=== PATIENT | male | born 1955 | race Caucasian/White ===

== ENCOUNTER 2018-03-05 18:55 | Emergency (ER) | payer OTHER ==
[~2018-03-05] VITALS: Ht 190.5 cm; Wt 104.3 kg
[2018-03-05 19:49] LABS: Hematocrit 38.6 % (37.0-53.0); Hemoglobin 13.1 g/dL (13.5-17.5); Mean Corpuscular HGB 29.4 pg (26.0-34.0); Mean Corpuscular HGB Conc 33.9 g/dL (31.5-36.5); Mean Corpuscular Volume 87 fL (80-100); Mean Platelet Volume 8.8 fL (9.1-12.4); Platelet Count 184 K/mm3 (150-400); RDW Coefficient Variation 12.7 % (11.7-14.2); Red Blood Cell Count 4.46 M/mm3 (4.30-5.90); White Blood Cell Count 5.23 K/mm3 (4.00-11.30)
[2018-03-05 20:06] LABS: Anion Gap 7 mmol/L (6-16); Blood Urea Nitrogen 21 mg/dL (8-24); Bun/Creatinine Ratio 23.7 (12.0-20.0); CO2, Blood 26 mmol/L (21-32); Chloride, Blood 108 mmol/L (98-108); Creatinine, Blood 0.89 mg/dL (0.60-1.20); Glomerular Filtration Rate >60 (60-); Glucose, Blood 131 mg/dL (70-99); Potassium, Blood 3.8 mmol/L (3.5-5.5); Sodium, Blood 141 mmol/L (136-145)
[2018-03-05] MEDS ORDERED: Norco 5-325 Ta1 EACH PO (21:03)
== END 2018-03-05 21:12 | disposition home or self-care (01) ==
LOC: ER 18:55
PROVIDERS: Emergency Medicine
DX: S09.90XA Unspecified injury of head, initial encounter (principal); S16.1XXA Strain of muscle, fascia and tendon at neck level, initial encounter; S20.212A Contusion of left front wall of thorax, initial encounter; I71.2 Thoracic aortic aneurysm, without rupture; V49.9XXA Car occupant (driver) (passenger) injured in unspecified traffic accident, initial encounter; I10 Essential (primary) hypertension
CPT/HCPCS: 70450; 71260; 72125; 73000; 80048; 85027; 96374; 96376; 99285-25; J3010; Q9967

== ENCOUNTER 2018-07-22 14:14 | Emergency (ER) | payer OTHER ==
[~2018-07-22] VITALS: Ht 190.5 cm; Wt 98.0 kg
[~2018-07-22 14:14] MED LIST: Norco 5-325 Ta1 EACH PO
[2018-07-22] MEDS ORDERED: LISI20 PO (14:21)
[2018-07-22 15:32] LABS: BASOPHILS ABSOLUTE AUTO 0.05 K/mm3 (0.00-0.23); BASOPHILS PERCENT AUTO 1 % (0-2); EOSINOPHILS ABSOLUTE AUTO 0.17 K/mm3 (0.00-0.68); EOSINOPHILS PERCENT AUTO 3 % (0-6); Hematocrit 39.2 % (37.0-53.0); Hemoglobin 13.2 g/dL (13.5-17.5); IMMATURE GRAN ABSOLUTE AUTO 0.02 K/mm3 (0.00-0.10); IMMATURE GRAN PERCENT AUTO 0 % (0-1); LYMPHOCYTES PERCENT AUTO 30 % (21-46); MONOCYTES ABSOLUTE AUTO 0.36 K/mm3 (0.16-1.47); MONOCYTES PERCENT AUTO 7 % (4-13); Mean Corpuscular HGB 29.7 pg (26.0-34.0); Mean Corpuscular HGB Conc 33.7 g/dL (31.5-36.5); Mean Corpuscular Volume 88 fL (80-100); Mean Platelet Volume 8.8 fL (9.1-12.4); NEUTROPHILS PERCENT AUTO 59 % (41-73); Platelet Count 222 K/mm3 (150-400); RDW Coefficient Variation 12.4 % (11.7-14.2); RDW Standard Deviation 40.5 fL (35.1-46.3); Red Blood Cell Count 4.45 M/mm3 (4.30-5.90)
[2018-07-22 15:48] LABS: Troponin I <0.015 ng/mL (0.000-0.040)
[2018-07-22 15:57] LABS: Alanine Aminotransfer (ALT/SGP 27 U/L (12-78); Albumin, Blood 4.1 g/dL (3.4-5.0); Albumin/Globulin Ratio 1.4 (0.8-1.8); Alk Phos 58 U/L (50-136); Anion Gap 8 mmol/L (6-16); Aspartate Aminotrans (AST/SGOT 18 U/L (12-37); Bilirubin, Total 0.5 mg/dL (0.1-1.0); Blood Urea Nitrogen 12 mg/dL (8-24); CO2, Blood 26 mmol/L (21-32); Calcium, Blood 8.7 mg/dL (8.5-10.1); Chloride, Blood 107 mmol/L (98-108); Creatinine, Blood 0.71 mg/dL (0.60-1.20); Glomerular Filtration Rate >60 (60-); Glucose, Blood 90 mg/dL (70-99); Potassium, Blood 3.5 mmol/L (3.5-5.5); Sodium, Blood 141 mmol/L (136-145); Total Protein, Blood 7.1 g/dL (6.4-8.2)
[2018-07-25 14:10] LABS: Cholesterol 191 mg/dL (50-200); HDL Cholesterol 48 mg/dL (>39); LDL/HDL RATIO 2.6; Low Density Lipoprotein Chol 126 mg/dL (0-110); Triglycerides 84 mg/dL (30-160); Very Low Density Lipoprot Chol 16 mg/dL (6-32)
== END 2018-07-22 17:00 | disposition home or self-care (01) ==
LOC: ER 14:14
PROVIDERS: Physician Assistant
DX: M79.622 Pain in left upper arm (principal); I10 Essential (primary) hypertension; Z87.891 Personal history of nicotine dependence; Z88.5 Allergy status to narcotic agent; Z79.899 Other long term (current) drug therapy
CPT/HCPCS: 36415; 71046; 80053; 80061; 83880; 84484; 85025; 93005; 93010; 99284-25

== ENCOUNTER 2018-09-07 13:40 | Observation (INO) | payer OTHER ==
[~2018-09-07] VITALS: Ht 188 cm; Wt 96.1 kg
[~2018-09-07 13:40] MED LIST changes: +LISI20 PO
[2018-09-07] MEDS ORDERED: METO25ER PO (14:13)
[2018-09-07] MEDS ORDERED: ASPI325 PO (14:13)
[2018-09-07 14:56] LABS: BASOPHILS ABSOLUTE AUTO 0.05 K/mm3 (0.00-0.23); BASOPHILS PERCENT AUTO 0 % (0-2); EOSINOPHILS ABSOLUTE AUTO 0.06 K/mm3 (0.00-0.68); EOSINOPHILS PERCENT AUTO 1 % (0-6); Hematocrit 48.7 % (37.0-53.0); Hemoglobin 16.2 g/dL (13.5-17.5); IMMATURE GRAN ABSOLUTE AUTO 0.03 K/mm3 (0.00-0.10); IMMATURE GRAN PERCENT AUTO 0 % (0-1); LYMPHOCYTES ABSOLUTE AUTO 0.99 K/mm3 (0.84-5.20); LYMPHOCYTES PERCENT AUTO 9 % (21-46); MONOCYTES PERCENT AUTO 4 % (4-13); Mean Corpuscular HGB 29.5 pg (26.0-34.0); Mean Corpuscular HGB Conc 33.3 g/dL (31.5-36.5); Mean Corpuscular Volume 89 fL (80-100); Mean Platelet Volume 9.3 fL (9.1-12.4); NEUTROPHILS PERCENT AUTO 86 % (41-73); Platelet Count 240 K/mm3 (150-400); RDW Coefficient Variation 12.3 % (11.7-14.2); RDW Standard Deviation 40.8 fL (35.1-46.3); Red Blood Cell Count 5.49 M/mm3 (4.30-5.90); White Blood Cell Count 11.13 K/mm3 (4.00-11.30)
[2018-09-07 15:14] LABS: Alanine Aminotransfer (ALT/SGP 27 U/L (12-78); Albumin, Blood 4.6 g/dL (3.4-5.0); Albumin/Globulin Ratio 1.2 (0.8-1.8); Alk Phos 86 U/L (50-136); Anion Gap 7 mmol/L (6-16); Aspartate Aminotrans (AST/SGOT 20 U/L (12-37); Bilirubin, Total 0.5 mg/dL (0.1-1.0); Blood Urea Nitrogen 25 mg/dL (8-24); Bun/Creatinine Ratio 26.1 (12.0-20.0); CO2, Blood 28 mmol/L (21-32); Calcium, Blood 9.6 mg/dL (8.5-10.1); Chloride, Blood 103 mmol/L (98-108); Creatinine, Blood 0.96 mg/dL (0.60-1.20); Globulin, Blood 3.7 g/dL (2.2-4.0); Glomerular Filtration Rate >60 (60-); Glucose, Blood 129 mg/dL (70-99); Potassium, Blood 4.6 mmol/L (3.5-5.5); Sodium, Blood 138 mmol/L (136-145); Total Protein, Blood 8.3 g/dL (6.4-8.2)
[2018-09-07 15:19] LABS: International Normalized Ratio 0.93; Prothrombin Time Results 9.7 Sec (9.7-11.5)
[2018-09-07 15:24] LABS: Ethanol (Alcohol), Blood, Med <3 mg/dL
[2018-09-07 16:22] LABS: Adenovirus F 40/41 Not Detected (NOT DETECT); Astrovirus Not Detected (NOT DETECT); Campylobacter Sp Not Detected (NOT DETECT); Cryptosporidium Not Detected (NOT DETECT); Cyclospora Cayetanensis Not Detected (NOT DETECT); E. Coli O157 Not Detected (NOT DETECT); Entamoeba Histolytica Not Detected (NOT DETECT); Enteroaggregative E. coli-EAEC Not Detected (NOT DETECT); Enteropathogenic E. coli-EPEC Not Detected (NOT DETECT); Enterotoxigenic E. coli-ETEC Not Detected (NOT DETECT); Giardia Lamblia Not Detected (NOT DETECT); Norovirus GI/GII Not Detected (NOT DETECT); Plesiomonas Shigelloides Not Detected (NOT DETECT); Rotavirus A Not Detected (NOT DETECT); Salmonella Sp Not Detected (NOT DETECT); Sapovirus Not Detected (NOT DETECT); Shiga Toxin-prod E. coli-STEC Not Detected (NOT DETECT); Shigella/Enteroin E. coli-EIEC Not Detected (NOT DETECT); Vibrio Cholerae Not Detected (NOT DETECT); Vibrio Sp Not Detected (NOT DETECT); Yersinia Enterocolitica Not Detected (NOT DETECT)
[2018-09-07 16:48] LABS: U Amphetamine Screen Not Detected; U Barbituate Screen Not Detected; U Benzodiazapine Screen Not Detected; U Buprenorphine Screen Not Detected; U Cannabinoids Screen DETECTED; U Cocaine Screen Not Detected; U Methadone Screen Not Detected; U Methamphetamine Screen Not Detected; U Opiates Screen Not Detected; U Oxycodone Screen Not Detected; U Phencyclidine Screen Not Detected; U Propoxyphene Screen Not Detected
[2018-09-07 22:00] LABS: Hematocrit 41.6 % (37.0-53.0); Hemoglobin 14.2 g/dL (13.5-17.5)
--- NOTE | 2018-09-07 22:56 | NUR ---
*LATE ENTRY 1945 HRS* PT HANDOFF REPORT RECEIVED FROM ED NURSE JAY JAY. PT ADMITTED FOR GI BLEED. HAS S/SX ABD. PAIN & NAUSEA FOR PAST 2 WEEKS, CAME TO ED WHEN BEGAN TO VOMIT BLOOD AND EXPERIENCING BLOODY STOOLS. A&O X4, INDEPENDENT. NO O2 OR TELE, ROOM AIR. HX OF HTN. 18 IV IN LEFT FOREARM, HAD RECEIVED LR AND FENTANYL IN THE ED. PT TRANSFERED TO MEDICAL FLOOR APPROXIMATELY 2000 HRS WNL. PT STATES ABD PAIN IS EPISODIC. HE IS A FULL CODE. HE HAS BEEN ORIENTED TO THE UNIT. CALL LIGHT WITHIN REACH.
--- NOTE | 2018-09-07 23:02 | NUR ---
PT STATUS STOOL SAMPLE SENT TO LAB ORDERED. OF NOTE: STOOL APPEARS COMPLETELY CHINTAN, BRIGHT RED BLOOD. CONSULT CALLED TO DR. MACIAS ORDERED. PT STATES ABD. PAIN IS INTERMITTENT, NOT CONSTANT AND COMES WHEN HAVING BOWEL MOVEMENTS. NO COMPLAINTS OF NAUSEA SINCE ARRIVING ON MEDICAL FLOOR. I DID SPEAK TO THE NIGHT HOSPITALIST TO REQUEST ICE CHIPS (APPROX 2200 HRS), SHE APPROVED A VERY TINY AMOUNT ONLY. I DID EXPLAIN TO THE PT THAT THIS LIMITATION IS NECESSARY HE MAY POSSIBLY REQUIRE A PROCEDURE TOMORROW.
[2018-09-08 01:20] LABS: Source, Urine Clean Catch
[2018-09-08 01:22] LABS: Bilirubin, Urine Neg (Neg); Blood, Urine 1+ (Neg); Glucose Qualitative, Urine Neg (Neg); Ketones, Urine Neg (Neg); Leukocyte Esterase, Urine Neg (Neg); Nitrite, Urine Neg (Neg); Protein, Urine Neg (Neg); Urobilinogen, Urine NORM (Normal)
[2018-09-08 01:28] LABS: Appearance, Urine Clear (Clear); Color, Urine Yellow (P-Yellow); White Blood Cells, Urine 0-2 /hpf (0-5)
[2018-09-08 01:29] LABS: Bacteria Mod /hpf; Hyaline Casts 0-2 /lpf (0-2); Mucus Light ({null, 0-Heavy}); Red Blood Cells, Urine 0-2 /hpf (0-2); Squamous Epithelial Cells Not Seen /hpf (Few)
[2018-09-08 04:46] LABS: BASOPHILS ABSOLUTE AUTO 0.04 K/mm3 (0.00-0.23); BASOPHILS PERCENT AUTO 0 % (0-2); EOSINOPHILS ABSOLUTE AUTO 0.12 K/mm3 (0.00-0.68); EOSINOPHILS PERCENT AUTO 1 % (0-6); Hematocrit 40.7 % (37.0-53.0); Hemoglobin 13.9 g/dL (13.5-17.5); IMMATURE GRAN ABSOLUTE AUTO 0.02 K/mm3 (0.00-0.10); IMMATURE GRAN PERCENT AUTO 0 % (0-1); LYMPHOCYTES ABSOLUTE AUTO 1.39 K/mm3 (0.84-5.20); LYMPHOCYTES PERCENT AUTO 14 % (21-46); MONOCYTES ABSOLUTE AUTO 0.58 K/mm3 (0.16-1.47); MONOCYTES PERCENT AUTO 6 % (4-13); Mean Corpuscular HGB 29.4 pg (26.0-34.0); Mean Corpuscular HGB Conc 34.2 g/dL (31.5-36.5); Mean Corpuscular Volume 86 fL (80-100); Mean Platelet Volume 8.8 fL (9.1-12.4); NEUTROPHILS ABSOLUTE AUTO 7.63 K/mm3 (1.96-9.15); NEUTROPHILS PERCENT AUTO 78 % (41-73); Platelet Count 180 K/mm3 (150-400); RDW Coefficient Variation 12.5 % (11.7-14.2); RDW Standard Deviation 39.3 fL (35.1-46.3); Red Blood Cell Count 4.72 M/mm3 (4.30-5.90); White Blood Cell Count 9.78 K/mm3 (4.00-11.30)
[2018-09-08 05:06] LABS: Anion Gap 7 mmol/L (6-16); Blood Urea Nitrogen 16 mg/dL (8-24); Bun/Creatinine Ratio 17.7 (12.0-20.0); CO2, Blood 27 mmol/L (21-32); Calcium, Blood 8.8 mg/dL (8.5-10.1); Chloride, Blood 106 mmol/L (98-108); Creatinine, Blood 0.91 mg/dL (0.60-1.20); Glomerular Filtration Rate >60 (60-); Glucose, Blood 128 mg/dL (70-99); Sodium, Blood 140 mmol/L (136-145)
--- NOTE | 2018-09-08 05:58 | NUR ---
SHIFT SUMMARY PT SLEPT INTERMITTENTLY THROUGHOUT THE NIGHT. HE WAS ANXIOUS ABOUT HIS CONDITION AND WONDERING WHEN HE WOULD FIND OUT SOME ANSWERS AND SOLUTIONS. I EXPLAINED TO HIM THAT HE WOULD REMAIN NPO THIS MORNING MORE DIAGNOSTIC TESTS AND PROCEDURES COULD BE A VERY REAL POSSIBILITY. SENT URINE AND STOOL (SEE PREVIOUS NOTE) SAMPLES TO LAB, AWAITING RESULTS. CALLED IN CONSULT TO DR. MACIAS'S ANSWERING SERVICE.
[2018-09-08 06:48] LABS: Stool Occult Blood Guaiac 1 Pos (Neg)
--- NOTE | 2018-09-08 08:17 | NUR ---
ASSUMED CARE OF PT- PT ADMITTED FOR GI BLEED. CALLED DR AFTER BEDSIDE REPORT WAS COMPLETED WITH [facility] D/T PT HGB DROP FROM 16.3 TO 13.9. INQUIRED ABOUT PROTONIX DRIP. PT HAS IV PROTONIX ORDERED DAILY. NO NEW ORDERS AT THIS TIME. PER REPORT FROM [facility] GI CONSULT CALLED TO DR LORENZO. PT HAVING BLOODY STOOLS LAST NIGHT CHINTAN RED BLOOD. PER REPORT PT VOMITING "STRAIGHT BLOOD" PT STATED HE HAS NOT VOMITED SINCE LAST NIGHT. PT BP ELEVATED, HAS CHRONIC HTN. DENIES NAUSEA AT THIS TIME.
--- NOTE | 2018-09-08 14:35 | NUR ---
History, Chart, Medications and Allergies reviewed before start of procedure. Patient confirms NPO status and agrees with scheduled surgery. Patient's partial dentures left in his room.
--- NOTE | 2018-09-08 14:42 | NUR ---
09/08/18 1442 Juli Tam History, Chart, Medications and Allergies reviewed before start of procedure. Patient confirms NPO status and agrees with scheduled surgery. PATIENT DETERMINED TO BE ASA APPROPRIATE FOR PROPOFOL SEDATION PRIOR TO START OF PROCEDURE BY DR. LORENZO. 3-LEAD EKG REVIEWED WITH PHYSICIAN PRIOR TO START OF PROCEDURE. MONITOR INTACT WITH CONTINUOUS PULSE OXIMETRY AND INTERMITTENT BP.
--- NOTE | 2018-09-08 20:02 | NUR ---
SHIFT SUMMARY- PT HAD AN UPPER ENDOSCOPY TODAY IS NOW ON A FULL LIQUID DIET, THIS WILL CHANGE TO CLEAR LIQUID DIET AT 0600 AND THEN NPO AFTER THE GOLYTLY IS COMPLETED, PT TO HAVE A COLONOSCOPY TOMORROW PER DR LORENZO. PT ALERT AND ORIENTED AND INDEPENDENT IN THE ROOM. ONE C/O NAUSEA AFTER THE PROCEDURE, MEDICATED WITH IV ZOFRAN AND FOOD. PT SEEMS TO BE FEELING BETTER AT THE TIME OF BEDSIDE REPORT. NO CURRENT C/O PAIN. BEDSIDE REPORT COMPLETED WITH [facility].
--- NOTE | 2018-09-09 05:31 | NUR ---
SHIFT SUMMARY PT DIAGNOSED WITH TAMIKA'S ESOPHAGUS AND GERD YESTERDAY FOLLOWING AN ENDOSCOPY PROCEDURE. PT ON WATER AND ICE CHIPS ONLY OF 6AM TODAY (ORAL MEDS OK), BEGIN GO LYTELY AT 9AM, THEN NPO AT 2PM. WILL HAVE A COLONOSCOPY PROCEDURE. PT COMPLAINED OF HEADACHE TOWARDS END OF SHIFT, PAIN MEDICATION GIVEN, NO RELIEF REPORTED. ICE BAG APPLIED.
--- NOTE | 2018-09-09 11:44 | NUR ---
SPOKE WITH DAY SURGERY, PATIENT HAS FINISHED CONTRAST AND STOOL IS YELLOW/CLEAR, NO PARTICLES. PATIENT NOW NPO.
--- NOTE | 2018-09-09 16:39 | NUR ---
PATIENT TO DAY SURGERY FOR COLONOSCOPY.
--- NOTE | 2018-09-09 16:44 | NUR ---
INTO SDS VIA Group [employer]. Patient states colon prep results clear. History, Chart, Medications and Allergies reviewed before start of procedure.Patient confirms NPO status and agrees with scheduled PROCEDURE.LUNGS WITH SCATTERED WHEEZES THROUGH OUT. SATS>90% ON RA.
--- NOTE | 2018-09-09 17:16 | NUR ---
09/09/18 1716 Abe Carmichaelienne PATIENT DETERMINED TO BE ASA APPROPRIATE FOR PROPOFOL SEDATION PRIOR TO START OF PROCEDURE BY DR. LORENZO. 3-LEAD EKG REVIEWED WITH PHYSICIAN PRIOR TO START OF PROCEDURE. Patient states colon prep results clear. PATIENT CONFIRMS NPO STATUS AND AGREES WITH SCHEDULED PROCEDURE. History, Chart, Medications and Allergies reviewed before start of procedure. MONITOR INTACT WITH CONTINUOUS PULSE OXIMETRY AND INTERMITTENT BP. O2 VIA N/C INTACT THROUGHOUT SEDATION/PROCEDURE, 3L NC. WE WILL START WITH 2 MG IV VERSED DUE TO DIFFICULTY WITH SEDATION YESTERDAY.
--- NOTE | 2018-09-09 18:34 | NUR ---
PATIENT ARRIVED BACK TO ROOM FROM HIS COLONOSCOPY. VSS. PATIENT AWAKE AND TALKING ON THE PHONE. DENIES ANY PAIN. ORDERS PLACED FOR CARDIAC DIET.
--- NOTE | 2018-09-10 04:43 | NUR ---
[employer] INSTALLER SUMMARY NO ACUTE CHANGES THIS SHIFT. PT AAOX4 AND INDEPENDENT IN ROOM. PT REPORTS NO MORE BLOOD IN HIS STOOLS AFTER COLONOSCOPY EARLIER IN THE DAY. STARTED ON CARDIAC DIET WHICH PT TOLERATED WELL. PT DENIES PAIN, SOB, N/V. VSS, WILL CONTINUE TO MONITOR.
[2018-09-10] MEDS ORDERED: Omeprazole20 M1 PO (09:47)
--- NOTE | 2018-09-10 10:24 | NUR ---
PATIENT D/C'D TO HOME WITH FAMILY. D/C INSTRUCTIONS AND EDUCATION DISCUSSED WITH PATIENT AND COPY PROVIDED. RX MEDICATIONS FAXED TO [facility]. PATIENT DENIES ANY FURTHER QUESTIONS OR CONCERNS.
== END 2018-09-10 10:30 | disposition home or self-care (01) ==
LOC: ER 13:40 → MEDS 13:41 → ER 19:46 → MEDS 19:51
PROVIDERS: Emergency Medicine; ADMIT Hospitalist
DX: D12.3 Benign neoplasm of transverse colon (principal); K52.9 Noninfective gastroenteritis and colitis, unspecified; K57.30 Diverticulosis of large intestine without perforation or abscess without bleeding; K64.8 Other hemorrhoids; K22.2 Esophageal obstruction; K20.8 Other esophagitis; K44.9 Diaphragmatic hernia without obstruction or gangrene; E86.0 Dehydration; I10 Essential (primary) hypertension; R51 Headache; K31.89 Other diseases of stomach and duodenum; Z88.5 Allergy status to narcotic agent; Z79.899 Other long term (current) drug therapy
CPT/HCPCS: 36415; 80048; 80053; 81001; 82272; 84443; 85014; 85018; 85025; 85610; 87086; 87507; 88305; 88342; 96361; 96374; 96375; 96376; 99284-25; C9113; G0378; G0480; J0780; J2250; J2405; J3010; J7120

== ENCOUNTER 2018-09-10 14:14 | Emergency (ER) | payer OTHER ==
[~2018-09-10] VITALS: Ht 188 cm; Wt 97.1 kg
[~2018-09-10 14:14] MED LIST changes: +ASPI325 PO; +METO25ER PO; +Omeprazole20 M1 PO
[2018-09-10 15:45] LABS: BASOPHILS ABSOLUTE AUTO 0.05 K/mm3 (0.00-0.23); BASOPHILS PERCENT AUTO 1 % (0-2); EOSINOPHILS ABSOLUTE AUTO 0.12 K/mm3 (0.00-0.68); EOSINOPHILS PERCENT AUTO 2 % (0-6); Hematocrit 38.4 % (37.0-53.0); Hemoglobin 13.2 g/dL (13.5-17.5); IMMATURE GRAN ABSOLUTE AUTO 0.03 K/mm3 (0.00-0.10); IMMATURE GRAN PERCENT AUTO 0 % (0-1); LYMPHOCYTES ABSOLUTE AUTO 0.97 K/mm3 (0.84-5.20); LYMPHOCYTES PERCENT AUTO 13 % (21-46); MONOCYTES ABSOLUTE AUTO 0.47 K/mm3 (0.16-1.47); MONOCYTES PERCENT AUTO 6 % (4-13); Mean Corpuscular HGB 29.7 pg (26.0-34.0); Mean Corpuscular HGB Conc 34.4 g/dL (31.5-36.5); Mean Corpuscular Volume 87 fL (80-100); Mean Platelet Volume 8.9 fL (9.1-12.4); NEUTROPHILS ABSOLUTE AUTO 5.95 K/mm3 (1.96-9.15); NEUTROPHILS PERCENT AUTO 78 % (41-73); Platelet Count 179 K/mm3 (150-400); RDW Coefficient Variation 12.2 % (11.7-14.2); RDW Standard Deviation 38.6 fL (35.1-46.3); Red Blood Cell Count 4.44 M/mm3 (4.30-5.90); White Blood Cell Count 7.59 K/mm3 (4.00-11.30)
[2018-09-10 15:52] LABS: Alanine Aminotransfer (ALT/SGP 21 U/L (12-78); Albumin, Blood 3.8 g/dL (3.4-5.0); Albumin/Globulin Ratio 1.2 (0.8-1.8); Alk Phos 75 U/L (50-136); Anion Gap 8 mmol/L (6-16); Aspartate Aminotrans (AST/SGOT 19 U/L (12-37); Bilirubin, Total 0.6 mg/dL (0.1-1.0); Blood Urea Nitrogen 16 mg/dL (8-24); Bun/Creatinine Ratio 18.1 (12.0-20.0); CO2, Blood 26 mmol/L (21-32); Calcium, Blood 8.5 mg/dL (8.5-10.1); Chloride, Blood 102 mmol/L (98-108); Creatinine, Blood 0.89 mg/dL (0.60-1.20); Globulin, Blood 3.2 g/dL (2.2-4.0); Glomerular Filtration Rate >60 (60-); Glucose, Blood 133 mg/dL (70-99); Potassium, Blood 3.4 mmol/L (3.5-5.5); Sodium, Blood 136 mmol/L (136-145); Troponin I <0.015 ng/mL (0.000-0.040)
== END 2018-09-10 16:45 | disposition home or self-care (01) ==
LOC: ER 14:14
PROVIDERS: Emergency Medicine
DX: R53.1 Weakness (principal); Z88.5 Allergy status to narcotic agent; Z79.899 Other long term (current) drug therapy; Z79.82 Long term (current) use of aspirin; I10 Essential (primary) hypertension
CPT/HCPCS: 71046; 80053; 83690; 84484; 85025; 93005; 93010; 99285-25

== ENCOUNTER → 2019-01-27 | Outpatient (CLI) | payer OTHER ==
[2019-01-27 17:05] LABS: BASOPHILS ABSOLUTE AUTO 0.05 K/mm3 (0.00-0.23); BASOPHILS PERCENT AUTO 1 % (0-2); EOSINOPHILS ABSOLUTE AUTO 0.23 K/mm3 (0.00-0.68); EOSINOPHILS PERCENT AUTO 3 % (0-6); Hematocrit 38.2 % (37.0-53.0); Hemoglobin 13.4 g/dL (13.5-17.5); IMMATURE GRAN ABSOLUTE AUTO 0.02 K/mm3 (0.00-0.10); IMMATURE GRAN PERCENT AUTO 0 % (0-1); LYMPHOCYTES ABSOLUTE AUTO 1.78 K/mm3 (0.84-5.20); LYMPHOCYTES PERCENT AUTO 25 % (21-46); MONOCYTES ABSOLUTE AUTO 0.52 K/mm3 (0.16-1.47); MONOCYTES PERCENT AUTO 7 % (4-13); Mean Corpuscular HGB Conc 35.1 g/dL (31.5-36.5); Mean Corpuscular Volume 86 fL (80-100); Mean Platelet Volume 8.9 fL (9.1-12.4); NEUTROPHILS ABSOLUTE AUTO 4.46 K/mm3 (1.96-9.15); NEUTROPHILS PERCENT AUTO 63 % (41-73); Platelet Count 226 K/mm3 (150-400); RDW Coefficient Variation 12.4 % (11.7-14.2); RDW Standard Deviation 38.3 fL (35.1-46.3); Red Blood Cell Count 4.47 M/mm3 (4.30-5.90); White Blood Cell Count 7.06 K/mm3 (4.00-11.30)
[2019-01-27 17:19] LABS: Alanine Aminotransfer (ALT/SGP 37 U/L (12-78); Albumin, Blood 4.2 g/dL (3.4-5.0); Albumin/Globulin Ratio 1.4 (0.8-1.8); Alk Phos 75 U/L (40-126); Anion Gap 10 mmol/L (6-16); Aspartate Aminotrans (AST/SGOT 35 U/L (12-37); Bilirubin, Total 0.3 mg/dL (0.1-1.0); Blood Urea Nitrogen 25 mg/dL (8-24); Bun/Creatinine Ratio 23.1 (12.0-20.0); CO2, Blood 26 mmol/L (21-32); Calcium, Blood 9.1 mg/dL (8.5-10.1); Chloride, Blood 102 mmol/L (98-108); Creatinine, Blood 1.08 mg/dL (0.60-1.20); Globulin, Blood 3.1 g/dL (2.2-4.0); Glomerular Filtration Rate >60 (60-); Glucose, Blood 97 mg/dL (70-99); Potassium, Blood 4.2 mmol/L (3.5-5.5); Sodium, Blood 138 mmol/L (136-145); Total Protein, Blood 7.3 g/dL (6.4-8.2)
[2019-01-27 19:21] LABS: PSA, %Free 35.4 %; PSA, Free 0.199 ng/mL; Prostate Specific Antigen 0.562 ng/mL (0.000-4.000)
== END ==
LOC: LAB SHORT 16:59 → LAB EV 16:59
PROVIDERS: Emergency Medicine
DX: M62.81 Muscle weakness (generalized) (principal)
CPT/HCPCS: 80053; 84153; 84154; 85025

== ENCOUNTER → 2019-03-05 | Outpatient (CLI) | payer OTHER | END | disposition home or self-care (01) | LOC: LAB SHORT 12:15 → LAB EV 12:15 | DX: M79.671 Pain in right foot (principal) | CPT/HCPCS: 84550 ==

== ENCOUNTER → 2019-12-25 | Outpatient (CLI) | payer OTHER ==
[~2019-12-25] MED LIST changes: +CYCL10 PO; +GABAPENTIN600 MG PO; +HYDR25SUP PR; +ONDA4ODT MM; +Oxybutynin Chlo10 MG PO
[2019-12-25 12:47] LABS: BASOPHILS ABSOLUTE AUTO 0.04 K/mm3 (0.00-0.23); BASOPHILS PERCENT AUTO 1 % (0-2); EOSINOPHILS ABSOLUTE AUTO 0.15 K/mm3 (0.00-0.68); EOSINOPHILS PERCENT AUTO 2 % (0-6); Hematocrit 35.9 % (37.0-53.0); Hemoglobin 12.4 g/dL (13.5-17.5); IMMATURE GRAN ABSOLUTE AUTO 0.01 K/mm3 (0.00-0.10); IMMATURE GRAN PERCENT AUTO 0 % (0-1); LYMPHOCYTES ABSOLUTE AUTO 1.82 K/mm3 (0.84-5.20); LYMPHOCYTES PERCENT AUTO 25 % (21-46); MONOCYTES ABSOLUTE AUTO 0.62 K/mm3 (0.16-1.47); MONOCYTES PERCENT AUTO 9 % (4-13); Mean Corpuscular HGB 29.8 pg (26.0-34.0); Mean Corpuscular HGB Conc 34.5 g/dL (31.5-36.5); Mean Corpuscular Volume 86 fL (80-100); Mean Platelet Volume 8.9 fL (9.1-12.4); NEUTROPHILS ABSOLUTE AUTO 4.64 K/mm3 (1.96-9.15); NEUTROPHILS PERCENT AUTO 64 % (41-73); Platelet Count 198 K/mm3 (150-400); RDW Coefficient Variation 12.8 % (11.7-14.2); RDW Standard Deviation 40.2 fL (35.1-46.3); Red Blood Cell Count 4.16 M/mm3 (4.30-5.90); White Blood Cell Count 7.28 K/mm3 (4.00-11.30)
[2019-12-25 13:02] LABS: Alanine Aminotransfer (ALT/SGP 25 U/L (12-78); Albumin, Blood 4.1 g/dL (3.4-5.0); Albumin/Globulin Ratio 1.3 (0.8-1.8); Alk Phos 79 U/L (40-126); Anion Gap 8 mmol/L (6-16); Aspartate Aminotrans (AST/SGOT 26 U/L (12-37); Bilirubin, Total 0.5 mg/dL (0.1-1.0); Blood Urea Nitrogen 32 mg/dL (8-24); Bun/Creatinine Ratio 12.1 (12.0-20.0); CO2, Blood 24 mmol/L (21-32); Calcium, Blood 8.8 mg/dL (8.5-10.1); Chloride, Blood 101 mmol/L (98-108); Creatinine, Blood 2.65 mg/dL (0.60-1.20); Globulin, Blood 3.2 g/dL (2.2-4.0); Glomerular Filtration Rate 25 (60-); Glucose, Blood 101 mg/dL (70-99); Potassium, Blood 5.7 mmol/L (3.5-5.5); Sodium, Blood 133 mmol/L (136-145); Total Protein, Blood 7.3 g/dL (6.4-8.2)
[2019-12-25 13:03] LABS: Troponin I <0.017 ng/mL (0.000-0.040)
== END ==
LOC: LAB SHORT 12:44 → LAB EV 12:44
PROVIDERS: Family Medicine
DX: R42 Dizziness and giddiness (principal)
CPT/HCPCS: 80053; 84484; 85025

== ENCOUNTER → 2020-02-10 | Outpatient (CLI) | payer OTHER ==
[2020-02-10 16:36] LABS: Source, Urine Clean Catch
[2020-02-10 18:10] LABS: Bilirubin, Urine Neg (Neg); Blood, Urine Neg (Neg); Glucose Qualitative, Urine Neg (Neg); Ketones, Urine Neg (Neg); Leukocyte Esterase, Urine Neg (Neg); Nitrite, Urine Neg (Neg); Protein, Urine Neg (Neg); Specific Gravity, Urine 1.015 (1.003-1.022); Urobilinogen, Urine NORM (Normal)
[2020-02-10 18:22] LABS: Appearance, Urine Clear (Clear); Color, Urine Yellow (P-Yellow)
== END | disposition home or self-care (01) ==
LOC: LAB SHORT 16:34 → OLS 16:34 → EDSTATUS 02-09 16:10 → LAB FUT 02-09 16:10
PROVIDERS: Urology
DX: N39.0 Urinary tract infection, site not specified (principal)
CPT/HCPCS: 81003; 87086

== ENCOUNTER 2020-10-09 17:19 | Emergency (ER) | payer OTHER ==
[~2020-10-09] VITALS: Ht 190.5 cm; Wt 93.0 kg
[2020-10-09 17:44] LABS: BASOPHILS ABSOLUTE AUTO 0.05 K/mm3 (0.00-0.23); BASOPHILS PERCENT AUTO 1 % (0-2); EOSINOPHILS ABSOLUTE AUTO 0.16 K/mm3 (0.00-0.68); EOSINOPHILS PERCENT AUTO 3 % (0-6); Hematocrit 37.4 % (37.0-53.0); Hemoglobin 12.6 g/dL (13.5-17.5); IMMATURE GRAN ABSOLUTE AUTO 0.02 K/mm3 (0.00-0.10); IMMATURE GRAN PERCENT AUTO 0 % (0-1); LYMPHOCYTES PERCENT AUTO 34 % (21-46); MONOCYTES ABSOLUTE AUTO 0.47 K/mm3 (0.16-1.47); MONOCYTES PERCENT AUTO 7 % (4-13); Mean Corpuscular HGB 29.8 pg (26.0-34.0); Mean Corpuscular HGB Conc 33.7 g/dL (31.5-36.5); Mean Corpuscular Volume 88 fL (80-100); Mean Platelet Volume 8.8 fL (9.1-12.4); NEUTROPHILS ABSOLUTE AUTO 3.51 K/mm3 (1.96-9.15); NEUTROPHILS PERCENT AUTO 55 % (41-73); Platelet Count 203 K/mm3 (150-400); RDW Coefficient Variation 12.4 % (11.7-14.2); RDW Standard Deviation 40.2 fL (35.1-46.3); Red Blood Cell Count 4.23 M/mm3 (4.30-5.90); White Blood Cell Count 6.41 K/mm3 (4.00-11.30)
[2020-10-09 17:45] LABS: Chloride (POC) 100 mmol/L (98-108); Creatinine (POC) 1.1 mg/dL (0.8-1.3); Glucose (ISTAT POC) 127 mg/dL (70-99); Hemoglobin (POC) 13.3 g/dL (13.5-17.5); Potassium (POC) 3.8 mmol/L (3.5-5.5); Sodium (POC) 136 mmol/L (135-148); Total CO2 (POC) 27 mmol/L (21-32)
[2020-10-09 18:56] LABS: Alanine Aminotransfer (ALT/SGP 27 U/L (12-78); Albumin, Blood 4.3 g/dL (3.4-5.0); Albumin/Globulin Ratio 1.4 (0.8-1.8); Alk Phos 70 U/L (50-136); Anion Gap 8 mmol/L (6-16); Aspartate Aminotrans (AST/SGOT 20 U/L (12-37); Bilirubin, Total 0.4 mg/dL (0.1-1.0); Blood Urea Nitrogen 16 mg/dL (8-24); Bun/Creatinine Ratio 16.4 (12.0-20.0); CO2, Blood 24 mmol/L (21-32); Calcium, Blood 8.9 mg/dL (8.5-10.1); Chloride, Blood 104 mmol/L (98-108); Creatinine, Blood 0.97 mg/dL (0.60-1.20); Glomerular Filtration Rate >60 (60-); Glucose, Blood 125 mg/dL (70-99); Potassium, Blood 3.7 mmol/L (3.5-5.5); Sodium, Blood 136 mmol/L (136-145); Total Protein, Blood 7.3 g/dL (6.4-8.2); Troponin I <0.015 ng/mL (0.000-0.040)
== END 2020-10-09 20:17 | disposition home or self-care (01) ==
LOC: ER 17:19
PROVIDERS: Emergency Medicine
DX: R55 Syncope and collapse (principal); R51.9 Headache, unspecified; R11.2 Nausea with vomiting, unspecified
CPT/HCPCS: 70450; 80047; 80053; 83880; 84484; 85014; 85025; 93005; 93010; 96374; 99284-25; J2550

== ENCOUNTER 2021-09-15 10:58 | Day surgery (SDC) | payer OTHER ==
[~2021-09-15] VITALS: Ht 190.5 cm; Wt 130.0 kg
--- NOTE | 2021-09-15 12:11 | NUR ---
PT ADMITTED TO [facility]. AGREES WITH PLANNED PROCEDURE. LUNGS WITH FAINT WHEEZES IN UPPER LOBES, DIMINISHED IN BASES. DUO NEB GIVEN PER ORDER. WHEEZES CLEARED, RIGHT SIDE WITH FAINT RHONCHI. DR. LORENZO INFORMED OF THIS.
--- NOTE | 2021-09-15 12:34 | NUR ---
09/15/21 1234 Garcia Mohan PATIENT DETERMINED TO BE ASA APPROPRIATE FOR PROPOFOL SEDATION PRIOR TO START OF PROCEDURE BY DR. LORENZO. Bite Block Placed. 3-LEAD EKG REVIEWED WITH PHYSICIAN PRIOR TO START OF PROCEDURE. Patient to ENDO 1 History, Chart, Medications and Allergies reviewed before start of procedure. MONITOR INTACT WITH CONTINUOUS PULSE OXIMETRY AND INTERMITTENT BP. O2 VIA N/C INTACT THROUGHOUT SEDATION/PROCEDURE.
--- NOTE | 2021-09-15 13:18 | NUR ---
Discharge instructions reviewed with patient. Patient verbalizes understanding. Copy given to patient to take home. Patient States Post-Procedure ride home has been arranged. Discharged via wheelchair to private car for ride home.
== END 2021-09-15 22:56 | disposition home or self-care (01) ==
LOC: ORSCMMR 10:58 → ORSCSDS 12:15 → ORD 12:15 → ORSCMMR 22:56
PROVIDERS: Internal Medicine Gastroenterology
PROC: 0DB58ZX Excision of Esophagus, Via Natural or Artificial Opening Endoscopic, Diagnostic (ICD-10-PCS; principal; 2021-09-15 12:15)
DX: K22.70 Barrett's esophagus without dysplasia (principal); K44.9 Diaphragmatic hernia without obstruction or gangrene; I10 Essential (primary) hypertension; Z87.891 Personal history of nicotine dependence
CPT/HCPCS: 88305; J2704; J7120

== ENCOUNTER 2024-01-10 08:49 | Day surgery (SDC) | payer OTHER ==
[~2024-01-10] VITALS: Ht 188 cm; Wt 96.2 kg
[~2024-01-10 08:49] MED LIST changes: +NS 500 ML IV ONE; +Triamcinolone Inj Susp 40 MG / ML 1ML Vial ONE
[2024-01-10] MEDS ORDERED: Midazolam HCl 1MG / ML 2ML Vial ONE (09:28)
[2024-01-10] MEDS ORDERED: FentaNYL Citrate 50 MCG/ML 2 ML Injection ONE (09:28)
[2024-01-10] MEDS ORDERED: NS 500 ML IV ONE (09:56)
--- NOTE | 2024-01-10 10:04 | NUR ---
01/10/24 Yessy Kauffman DURING ASSESSMENT OF PT, WHEEZESE WERE HEARD TO POSTERIOR BILATERALLY. R LOWER LOBE WHEEZE WAS PRESENT. ANESTHESIOLOGIST WAS NOTIFIED, AND OKAYED TO PERCEED WITH SURGERY. MARTHA.
[2024-01-10] MEDS ORDERED: Lidocaine HCl/Pf 1% 5 ML VIAL XX ONE (10:12)
[2024-01-10] MEDS ORDERED: Balanced Salt Epinephrine Irrigation Solution 500 mL IR ONE (10:12)
[2024-01-10] MEDS ORDERED: Moxifloxacin HCL 0.5 MG/0.1 ML 0.4MLSYR XX ONE (10:12)
[2024-01-10] MEDS ORDERED: HydrALAZINE HCl 20 MG / ML 1ML Vial ONE (10:14)
[2024-01-10 10:32] VITALS: BP 160/97
--- NOTE | 2024-01-10 10:50 | NUR ---
01/10/24 1050 Haylee Maxwell PATIENT ADVISED THAT HE NEEDS TO FOLLOW UP WITH HIS PCP REGARDING ELEVATED BP. HE VERBALIZED UNDERSTANDING AND VERBALLY AGREED THAT HE WILL. THIS INSTRUCTION WAS ALSO WRITTEN ON HIS DISCHARGE INSTRUCTIONS.
== END 2024-01-10 10:45 | disposition home or self-care (01) ==
LOC: ORSCSDS 08:49
PROVIDERS: Ophthalmology
PROC: 08RJ3JZ Replacement of Right Lens with Synthetic Substitute, Percutaneous Approach (ICD-10-PCS; principal; 2024-01-10 10:30)
DX: H25.813 Combined forms of age-related cataract, bilateral (principal); H53.001 Unspecified amblyopia, right eye; I10 Essential (primary) hypertension; K21.9 Gastro-esophageal reflux disease without esophagitis; Z79.82 Long term (current) use of aspirin; Z79.899 Other long term (current) drug therapy
CPT/HCPCS: J0360; J2001; J2250; J3010; J3301; J7040; V2632

== ENCOUNTER 2025-05-20 06:30 | Day surgery (SDC) | payer OTHER ==
[~2025-05-20] VITALS: Ht 188 cm; Wt 97.6 kg
[~2025-05-20 06:30] MED LIST changes: -NS 500 ML IV ONE; -Triamcinolone Inj Susp 40 MG / ML 1ML Vial ONE
[2025-05-20] MEDS ORDERED: ALBU90OI (07:13)
[2025-05-20] MEDS ORDERED: REMERON1510 (07:13)
[2025-05-20] MEDS ORDERED: AMLODIPINE BESYL5 MG (07:13)
[2025-05-20] MEDS ORDERED: Ipratropium/Albuterol SulF 2.5-0.5MG/3 ML Amp ONE (07:46)
--- NOTE | 2025-05-20 07:53 | NUR ---
05/20/25 0753 Samy George PT WHEEZY THROUGHOUT. ADMINSTERED DUONEB PER DR KELLY V/O ORDER.
[2025-05-20] MEDS ORDERED: Midazolam HCL 1 MG/ML 5MLVIAL ONE (08:14)
--- NOTE | 2025-05-20 09:35 | NUR ---
05/20/25 0935 Barbara Herman S PT. REFUSED ANYTHING TO DRINK. PT. STATES "I'LL DRINK WHEN I GET HOME." PT. WAS GOING OUT TO BREAKFAST WITH HIS FRIEND.
[2025-05-20 09:37] VITALS: BP 139/90
== END 2025-05-20 09:24 | disposition home or self-care (01) ==
LOC: ORSCSDS 06:30
PROVIDERS: Internal Medicine Gastroenterology
PROC: 0DBN8ZX Excision of Sigmoid Colon, Via Natural or Artificial Opening Endoscopic, Diagnostic (ICD-10-PCS; principal; 2025-05-20 08:00)
PROC: 0DB58ZX Excision of Esophagus, Via Natural or Artificial Opening Endoscopic, Diagnostic (ICD-10-PCS; principal; 2025-05-20 08:00)
PROC: 0DBK8ZX Excision of Ascending Colon, Via Natural or Artificial Opening Endoscopic, Diagnostic (ICD-10-PCS; principal; 2025-05-20 08:00)
DX: K22.70 Barrett's esophagus without dysplasia (principal); Z12.11 Encounter for screening for malignant neoplasm of colon; D12.4 Benign neoplasm of descending colon; D12.5 Benign neoplasm of sigmoid colon; K21.9 Gastro-esophageal reflux disease without esophagitis; R63.4 Abnormal weight loss; Z86.0101 Personal history of adenomatous and serrated colon polyps; Z86.0102 Personal history of hyperplastic colon polyps; Z86.16 Personal history of COVID-19; J45.909 Unspecified asthma, uncomplicated; Z79.899 Other long term (current) drug therapy; Z87.891 Personal history of nicotine dependence
CPT/HCPCS: 88305; J2250; J2704; J7120